=== PATIENT | male | born 1955 | race Two or more races ===

== ENCOUNTER 2021-08-22 16:55 | Emergency (ER) | payer OTHER, MEDICAID ==
[~2021-08-22] VITALS: Ht 170.2 cm; Wt 74.8 kg
[2021-08-22 18:21] LABS: Basophils # (auto) 0 10 ^3/uL (0-0.2); Basophils % (auto) 0.5 % (0.0-2.0); Eosinophils # (auto) 0.2 10 ^3/uL (0-0.8); Eosinophils % (auto) 2.2 % (0.0-7.0); Hematocrit 41.8 % (41.0-53.0); Hemoglobin 14.5 g/dL (13.5-17.5); Lymphocytes # (auto) 1.6 10 ^3/uL (0.4-5.4); Lymphocytes % (auto) 15.6 % (10.0-50.0); Mean Corpuscular Hemoglobin 30.4 pg (28.0-32.0); Mean Corpuscular Hgb Conc. 34.6 g/dL (32.0-36.0); Mean Corpuscular Volume 87.8 fL (80.0-100.0); Monocytes # (auto) 0.8 10 ^3/uL (0-1.3); Monocytes % (auto) 8.3 % (0.0-12.0); Neutrophils # (auto) 7.4 10 ^3/uL (1.6-8.6); Neutrophils % (auto) 73.4 % (37.0-80.0); Nucleated Red Blood Cells % 0.1 %; Red Blood Cells 4.76 10^6/uL (4.5-5.90); Red Cell Distribution Width 13.9 % (11.8-14.3); White Blood Cell 10.1 10^3/uL (4.4-10.8)
[2021-08-22 18:31] LABS: Calcium 9.7 mg/dL (8.5-10.1)
[2021-08-22 18:34] LABS: Bilirubin, Total 0.6 mg/dL (0.2-1.0); Total Protein 7.9 g/dL (6.4-8.2)
[2021-08-22 19:07] LABS: Potassium 2.8 mmol/L (3.5-5.1)
[2021-08-22] MEDS ORDERED: IOHEXOL 350 MG/ML 100ML IJ ONE (19:29)
[2021-08-22] MEDS ORDERED: POTASSIUM PHOSPHATE 44 MEQ in D5W 5% 250 ML IV ONE (19:30)
[2021-08-23] MEDS ORDERED: POTASSIUM CHL 20 Meq TABLET PO ONE (00:30)
[2021-08-23] MEDS ORDERED: ASPirin-EC 81 mg tab PO SCH (00:45)
[2021-08-23] MEDS ORDERED: SODIUM CHLORIDE 0.9% 1,000 ML IV ONE (00:45)
[2021-08-23] MEDS ORDERED: DEXTROSE (50%) 50ML SYRG IV PRN (00:45)
[2021-08-23] MEDS: POTASSIUM CHL 10MEQ/50ML 50 ML IV SCH ×2 (00:48→01:30)
[2021-08-23 01:14] LABS: Cholesterol 115 mg/dL (< 200); HDL Cholesterol 68 mg/dL (40-59); Triglycerides 87 mg/dL (< 150)
[2021-08-23 04:05] LABS: LDL Cholesterol 40 mg/dL (< 100)
[2021-08-23 06:09] LABS: Calcium 9.3 mg/dL (8.5-10.1); Potassium 3.9 mmol/L (3.5-5.1)
[2021-08-23 06:13] LABS: BUN/Creatinine Ratio 18.2
[2021-08-23] MEDS ORDERED: InsuLIN REG 1unit/0.01ml Soln (100units/ml) SC SCH (07:00)
[2021-08-23] MEDS ORDERED: ACCU-CHEK COMFORT CURVE STRIP VI SCH (07:00)
[2021-08-23 09:16] VITALS: BP 139/78
[2021-08-23] MEDS ORDERED: MECL25TA18 PO (09:37)
== END 2021-08-23 09:49 | disposition home or self-care (01) ==
LOC: ER 16:55
DX: I63.9 Cerebral infarction, unspecified (principal); R42 Dizziness and giddiness; E11.9 Type 2 diabetes mellitus without complications; I10 Essential (primary) hypertension; Z20.822 Contact with and (suspected) exposure to COVID-19
CPT/HCPCS: 36415; 70450; 70496; 70498; 70551; 71045; 80048; 80053; 80061; 82962; 85025; 87426; 93005; 96360; 96361; 96372; 99285; J3480; J7030; J7060; Q9967